=== PATIENT | male | born 1975 | race Caucasian/White ===

== ENCOUNTER 2024-01-17 20:47 | Emergency (ER) | payer SELFPAY ==
[2024-01-17 20:56] VITALS: BP 130/84
[2024-01-17] MEDS: ADACEL 0.5 ML IM (22:10)
[2024-01-17] MEDS: KEFLEX 500 MG PO (22:10)
--- NOTE | 2024-01-17 23:06 | ED.GENMED ---
History of Present Illness
General
Chief Complaint: Skin Problem
Source: patient and spouse
Exam Limitations: none
Time Seen by Provider: 01/17/24 21:17
Nursing documentation reviewed up to this point in time: agreed with
History of Present Illness
History of Present Illness:
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
emergency department. 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 Denies any numbness weakness.
Past History
Past History
ED Past Medical History: GERD and Psychiatric
ED Past Surgical History: Orthopedic
Social History
Tobacco: Former smoker
Alcohol: Occasional
Drug: None
Personal:
Living: with family
Employment: Employed
Review of Systems
Review of Systems
Allergies reviewed?: Yes
All Other Systems: ROS reviewed and negative except as documented in HPI and ROS
Phy Exam
Physical Exam
Physical Exam:
GENERAL: Alert , in no apparent distress
EYE: pupils equal and reactive
NECK: Supple, no significant adenopathy.
ENT: o/p clr, mmm.
CARDIAC: Regular rate and rhythm .
LUNGS: Clear breath sounds bilaterally, no acute respiratory distress, no wheezes/rales/rhonchi
ABDOMEN: Soft, without focal tenderness, no r/g, no cvat
NEUROLOGICAL: Alert and oriented, no focal neuro deficits
SKIN: 2.5 cm laceration to the left dorsal hand on the ulnar aspect. Superficial in depth warm and dry, skin intact.
MUSCULOSKELETAL: No edema, well perfused.
PSYCH: Normal and appropriate interaction.
Course
Orders/Labs/Results
Orders:
Orders
01/17/24 22:03
Cephalexin Monohydrate [Keflex] 500 mg PO NOW STA
Tetanus/Diphth/Acelpertussis [Adacel] 0.5 ml IM .ONCE ONE
CR Hand - Left 2 Views Urgent
Comment:
Reason For Exam: hand laceration
Vital Signs
Initial and Last Documented VS:
Initial Vital Signs
Temp Pulse Resp BP Pulse Ox
99.1 F 85 18 130/84 99
01/17/24 20:56 01/17/24 20:56 01/17/24 20:56 01/17/24 20:56 01/17/24 20:56
Last Documented Vital Signs
Temp Pulse Resp BP Pulse Ox
99.1 F 85 18 130/84 99
01/17/24 20:56 01/17/24 20:56 01/17/24 20:56 01/17/24 20:56 01/17/24 20:56
Procedures
Laceration Closure
Left Ulnar Hand:
Status of Wound: clean
Size of Wound in cm: 2.5
Description of Wound Edges: sharp
Preparation: cleaned with saline
Anesthesia: 1% Lidocaine with epi
Revision/Debridement: routine- no revision and irrigate-direct pressure
Wound exploration: explored to base- no FB and no tendon involvement
Type of Closure: single layer closure
Skin Closure Material: 4-0 nylon
Number of sutures: 3
MDM/Problems Addressed
MDM/Problems Addressed:
48-year-old male presenting to the emergency department today with concerns of laceration to the left hand that occurred in the waiter/waitress tavern while at work. Bleeding controlled with pressure otherwise no numbness or weakness. X-ray performed without
emergent findings here. Lacerations relatively superficial no foreign body seen cleaned thoroughly no tendon involvement neurovascular intact. Patient is diabetic. He was started on Keflex as prophylaxis and also given an updated tetanus shot
otherwise 3 stitches placed advised for removal in 12 to 14 days. Return precautions given.
*Critical Care Note
Total Time (30-74mins, 75-104mins- exclusive of procedures): Not Applicable
ED Attending Note
-
Portions of this chart may have been created with voice recognition software.� Occasional wrong word or��sound alike� substitutions may have occurred due to the inherent limitations of voice recognition software.
Discharge Plan
Departure
Patient Disposition: Home (Routine Discharge)
Date of Disposition: 01/17/24
Time of Disposition: 23:09
Patient with high blood pressure during this ER visit?: No
Condition: Good
Covid-19: Not Applicable
Discharge Problem:
Hand laceration
Instructions: Laceration Repair With Stitches ED
Prescriptions:
New
cephalexin 500 mg capsule
500 mg PO TID 3 Days Qty: 9 0RF
No Action
omeprazole [Prilosec] 40 MG capsule,delayed release(DR/EC)
40 mg PO DAILY Qty: 20 0RF
diazepam 5 MG tablet
5 mg PO TIDPRN PRN (Reason: muscle spasm) Qty: 9 0RF
ciprofloxacin HCl 1 DROP drops
2 drp ophthalmic (eye) . DIRECTED Qty: 1 0RF
Rx Instructions:
2 drops every 4 hours
Referrals:
Crispin Merchant MD [Family Provider] -
Stand Alone Forms: Return to Work
Activity Restrictions/Additional Instructions:
You came to the emergency department today with concerns of a laceration to your hand. Please keep this clean covered and return for suture removal in 12 to 14 days. Please also take the prescribed antibiotics for the next few days to reduce risk
of infection.
Interventions
Interventions:
*Risk Screen - Suicide Last Done: 01/17/24 22:15
*General Assessment Last Done: 01/17/24 22:15
*Neglect/Abuse Screening Last Done: 01/17/24 22:15
ED- Fall Risk Assessment Last Done: 01/17/24 22:15
*ED COVID-19 Vaccine History Last Done: 01/17/24 22:16
ED-Skin Assessment Last Done: 01/17/24 22:15
Discharge Date and Time
Print Language: HEBREW
[2024-01-17] MEDS: REGLAN 10 MG PO (23:15)
[2024-01-17] MEDS: MOTRIN 600 MG PO (23:15)
[2024-01-17 23:18] VITALS: BP 140/79
== END 2024-01-17 23:18 | disposition home or self-care (01) ==
LOC: EMR 20:47
PROVIDERS: EMERGENCY PHYSICIAN Emergency Medicine; FAMILY PHYSICIAN Internal Medicine
DX: S61.412A Laceration without foreign body of left hand, initial encounter (principal); W45.8XXA Other foreign body or object entering through skin, initial encounter; Z23 Encounter for immunization; E11.9 Type 2 diabetes mellitus without complications; K21.9 Gastro-esophageal reflux disease without esophagitis; Z87.891 Personal history of nicotine dependence
CPT/HCPCS: 99283; 12001; 90471; 73120; 90715

== ENCOUNTER 2024-03-12 20:13 | Emergency (ER) | payer BC, SELFPAY ==
[2024-03-12 20:14] VITALS: BP 113/81
[2024-03-12 20:18] LABS: Glucose - Point of Care 407 mg/dl (70-99)
[2024-03-12 20:36] LABS: Venous Blood Gas B.E. 2.8 mmol/L (-4 to +4); Venous Blood Gas HCO3 28.5 mmol/L (22-27); Venous Blood Gas O2 Sat % 83.6 %; Venous Blood Gas pCO2 46 mmHg (35-48); Venous Blood Gas pO2 49 mmHg (30-50)
[2024-03-12 20:37] LABS: Urine Albumin Negative (Neg - Trace); Urine Bilirubin Negative (Negative); Urine Character Clear (Clear); Urine Color Yellow; Urine Glucose 3+ (Negative); Urine Ketone Negative (Negative); Urine Leukocyte Negative (Negative); Urine Nitrite Negative (Negative); Urine Occult Blood Negative (Negative); Urine Specific Gravity 1.015 (<1.030); Urine Urobilinogen Negative (Neg - 1+)
[2024-03-12 20:37] LABS: % Basophils 0.7 % (0-2); % Eosinophils 2.3 % (0-6); % Immature Granulocytes 0.5 % (0-0.5); % Lymphocytes 22.2 % (20.5-51.1); % Monocytes 6.5 % (1.7-9.3); % Neutrophils 67.8 % (42.2-75.2); Absolute Basophils 0.1 10^3/uL (0-0.2); Absolute Eosinophils 0.2 10^3/uL (0-0.7); Absolute Immature Granulocytes 0.1 10^3/uL (0-0.05); Absolute Lymphocytes 2.2 10^3/uL (1.2-3.4); Absolute Monocytes 0.6 10^3/uL (0.1-0.6); Absolute Neutrophils 6.7 10^3/uL (1.4-6.5); Hematocrit 48.3 % (39.0-52.0); Hemoglobin 16.3 g/dL (13.0-18.0); Mean Corp Hgb Conc. 33.7 g/dL (33.0-37.0); Mean Corpuscular Hgb 29.2 pg (27.0-31.0); Mean Corpuscular Volume 86.4 fL (80.0-94.0); Mean Platelet Volume 9.9 fL (7.4-10.4); Nucleated Red Blood Cells % 0 % (-); Platelet Count 192 10^3/uL (130-400); Red Blood Cell Count 5.59 10^6/uL (4.70-6.10); Red Cell Dist. Width 12.2 % (11.5-14.5); White Blood Cell Count 9.9 10^3/uL (4.8-10.8)
[2024-03-12 20:49] LABS: Lactic Acid 1.6 mmol/L (0.7-2.0)
[2024-03-12 21:00] VITALS: BP 116/81
[2024-03-12 21:03] LABS: ALT (SGPT) 36 U/L (0-50); AST (SGOT) 22 U/L (17-59); Albumin 4.7 g/dl (3.5-5.0); Alkaline Phosphatase 69 U/L (38-126); Blood Urea Nitrogen 20 mg/dl (9-20); Calcium 9.6 mg/dl (8.4-10.2); Carbon Dioxide 26 mmol/L (22-30); Chloride 96 mmol/L (98-107); Glucose 436 mg/dl (70-99); Potassium 4.4 mmol/L (3.5-5.1); Sodium 133 mmol/L (135-145); Total Bilirubin 0.7 mg/dl (0.2-1.3); Total Protein 7.6 g/dl (6.3-8.2); eGFR > 60.00
[2024-03-12 21:11] LABS: B-Hydroxybutyrate 0.06 mmol/L (0.02-0.27)
[2024-03-12 22:00] VITALS: BP 116/83
--- NOTE | 2024-03-12 22:10 | ED.GENMED ---
History of Present Illness
<JEAN CLAUDE Webb - Last Filed: 03/13/24 00:17>
General
Chief Complaint: Blood Sugar Problem
Source: patient and spouse
Exam Limitations: none
Time Seen by Provider: 03/12/24 22:00
Nursing documentation reviewed up to this point in time: agreed with
History of Present Illness
History of Present Illness:
Pt is a 48 yo M with PMH of type 2 DM, GERD, glaucoma and chronic back pain who presents to the ED after multiple high blood sugar readings at home over the past day which he states were in the 500s. Pt admits to associated mild dizziness since this
morning but denies episodes of syncope or falls. Pt also admits to numbness in his feet b/l, but states it is chronic. Pt denies TAVERAS, changes in vision, n/v/d, chest pain, SOB, abdominal pain.
Past History
<JEAN CLAUDE Webb - Last Filed: 03/13/24 00:17>
Past History
ED Past Medical History: GERD and Psychiatric
ED Past Surgical History: Orthopedic
Social History
Tobacco: Former smoker
Alcohol: Occasional
Drug: None
Personal:
Living: with family
Employment: Employed
Review of Systems
<JEAN CLAUDE Webb - Last Filed: 03/13/24 00:17>
Review of Systems
Allergies reviewed?: Yes
Other source history: family
Constitutional: Denies fever, fatigue, night sweats or chills
Respiratory: Denies cough or trouble breathing
Cardiac: Denies chest pain, palpitations or syncope
ABD/GI: Denies abdominal pain, nausea, vomiting or diarrhea
: Reports frequency; Denies flank pain, difficulty voiding, urgency or bleeding
Neurological: Reports dizzy and numbness (chronic); Denies headache or weakness
Endocrine: Reports polyuria and polydipsia
Phy Exam
<Melissa Mckinney, [facility] - Last Filed: 03/13/24 00:17>
General Physical Exam
General Presentation: well appearing and no apparent distress
General age: appears stated age
General Skin: warm and dry
General Habitus: normal
General Mental: alert
General Hydration: dry mucous membranes
ENT Exam
Additional ENT: dehydrated oral mucosa
Eye Exam
Eye Exam: PERRL
Cardiovascular Exam
Cardiovascular Exam: regular rate/rhythm and no murmur
Pulmonary Exam
Pulmonary Exam: lungs clear and no respiratory distress
Gastrointestinal Exam
Gastrointestinal Exam: non tender, soft and non distended
Neurological Exam
Neurological Exam: alert, oriented x3, no motor deficits, no sensory deficits and speech normal
Skin Exam
Skin Exam: normal color and warm/dry
<Anderson Medley DO - Last Filed: 03/12/24 23:42>
Physical Exam
Physical Exam:
Physical Exam
General: no apparent distress, not acutely ill
Neck: Dry lips
Heart: s1/s2 regular rate and rhythm, no murmur. equal radial pulses.
Lungs: no acute respiratory distress. clear bilaterally
Abdomen: Not tender
Neuro: alert and oriented. no focal neurological deficits
Skin: no rash
Psychiatric: well kept. interactive and cooperative
Extremities: no edema.
Course
<Melissa Mckinney, [facility] - Last Filed: 03/13/24 00:17>
Orders/Labs/Results
Orders:
Orders
03/12/24 20:24
B-Hydroxybutyrate Urgent
Complete Blood Count/With Diff Urgent
Comprehensive Metabolic Panel Urgent
Lactic Acid Urgent
Venous Blood Gas Urgent
%Oxygen/Room Air: ra
12/09/24 20:25
Urine Culture Reflexed from UA [Urinalysis Reflex To Culture] Urgent
Date Specimen was Collected: 03/12/24
Time Specimen was Collected: 20:21
03/12/24 22:10
0.9% Sodium Chloride 1000 ml [Nss] 1,000 ml IV BOLUS
Insulin Aspart [NOVOLOG vial] 6 units SC NOW STA
03/12/24 22:26
HOSPITALIST CONSULT Urgent
Consulting Provider: Zoya Hardy
Was physician already notified: Yes
03/12/24 22:38
GlipiZIDE [Glucotrol] 5 mg PO NOW STA
Abnormal Lab Results
03/12/24 03/12/24 03/12/24
20:17 20:24 20:25
Abs Immat Gran (auto) 0.1 H 10^3/uL
(0-0.05)
Absolute Neuts (auto) 6.7 H 10^3/uL
(1.4-6.5)
VBG HCO3 28.5 H mmol/L
(22-27)
Sodium 133 L mmol/L
(135-145)
Chloride 96 L mmol/L
(98-107)
Glucose 436 H mg/dl
(70-99)
Urine Glucose 3+ A
(Negative)
POC Glucose 407 H mg/dl
(70-99)
03/12/24 03/12/24
22:26 23:39
Abs Immat Gran (auto)
Absolute Neuts (auto)
VBG HCO3
Sodium
Chloride
Glucose
Urine Glucose
POC Glucose 346 H mg/dl 271 H mg/dl
(70-99) (70-99)
03/12/24 20:24
03/12/24 20:24
Vital Signs
Initial and Last Documented VS:
Initial Vital Signs
Temp Pulse Resp BP Pulse Ox
98.6 F 101 20 113/81 98
03/12/24 20:14 03/12/24 20:14 03/12/24 20:14 03/12/24 20:14 03/12/24 20:14
Last Documented Vital Signs
Temp Pulse Resp BP Pulse Ox
98.6 F 66 19 114/81 98
03/12/24 20:14 03/12/24 23:54 03/12/24 23:54 03/12/24 23:54 03/12/24 23:54
<Anderson Medley, DO - Last Filed: 03/12/24 23:42>
Orders/Labs/Results
Orders:
Orders
03/12/24 20:24
B-Hydroxybutyrate Urgent
Complete Blood Count/With Diff Urgent
Comprehensive Metabolic Panel Urgent
Lactic Acid Urgent
Venous Blood Gas Urgent
%Oxygen/Room Air: ra
03/12/24 20:25
Urine Culture Reflexed from UA [Urinalysis Reflex To Culture] Urgent
Date Specimen was Collected: 03/12/24
Time Specimen was Collected: 20:21
03/12/24 22:10
0.9% Sodium Chloride 1000 ml [Nss] 1,000 ml IV BOLUS
Insulin Aspart [NOVOLOG vial] 6 units SC NOW STA
03/12/24 22:26
HOSPITALIST CONSULT Urgent
Consulting Provider: Zoya Hardy
Was physician already notified: Yes
03/12/24 22:38
GlipiZIDE [Glucotrol] 5 mg PO NOW STA
Abnormal Lab Results
03/12/24 03/12/24 03/12/24
20:17 20:24 20:25
Abs Immat Gran (auto) 0.1 H 10^3/uL
(0-0.05)
Absolute Neuts (auto) 6.7 H 10^3/uL
(1.4-6.5)
VBG HCO3 28.5 H mmol/L
(22-27)
Sodium 133 L mmol/L
(135-145)
Chloride 96 L mmol/L
(98-107)
Glucose 436 H mg/dl
(70-99)
Urine Glucose 3+ A
(Negative)
POC Glucose 407 H mg/dl
(70-99)
03/12/24 03/12/24
22:26 23:39
Abs Immat Gran (auto)
Absolute Neuts (auto)
VBG HCO3
Sodium
Chloride
Glucose
Urine Glucose
POC Glucose 346 H mg/dl 271 H mg/dl
(70-99) (70-99)
03/12/24 20:24
03/12/24 20:24
Vital Signs
Initial and Last Documented VS:
Initial Vital Signs
Temp Pulse Resp BP Pulse Ox
98.6 F 101 20 113/81 98
03/12/24 20:14 03/12/24 20:14 03/12/24 20:14 03/12/24 20:14 03/12/24 20:14
Last Documented Vital Signs
Temp Pulse Resp BP Pulse Ox
98.6 F 66 19 114/81 98
03/12/24 20:14 03/12/24 23:54 03/12/24 23:54 03/12/24 23:54 03/12/24 23:54
<JENA CLAUDE Webb - Last Filed: 03/13/24 00:17>
MDM/Problems Addressed
Differential Diagnosis Includes:
DKA, NKHC, hyperglycemia, severe dehydration
Chronic conditions affecting care: DM
<JEAN CLAUDE Webb - Last Filed: 03/13/24 00:17>
*Critical Care Note
Total Time (30-74mins, 75-104mins- exclusive of procedures): Not Applicable
<Anderson Medley DO - Last Filed: 03/12/24 23:42>
Update Note
Update Note:
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
11:40 PM labs are trending down previously discussed with the hospitalist started on glipizide
ED Attending Note
<JEAN CLAUDE Webb - Last Filed: 03/13/24 00:17>
-
Portions of this chart may have been created with voice recognition software.� Occasional wrong word or��sound alike� substitutions may have occurred due to the inherent limitations of voice recognition software.
<Anderson Medley DO - Last Filed: 03/12/24 23:42>
ED Attending Note
Patient seen and examined by attending physician: Yes
ED Attending Note:
Seen with student examined independently agree with assessment and plan
Discharge Plan
Departure
Patient Disposition: Home (Routine Discharge)
Date of Disposition: 03/12/24
Time of Disposition: 23:41
Patient with high blood pressure during this ER visit?: No
Condition: Good
Covid-19: Not Applicable
Discharge Problem:
Hyperglycemia due to diabetes mellitus
Instructions: Type 2 Diabetes (DC)
Prescriptions:
New
glipizide 5 mg tablet
5 mg PO DAILY Qty: 30 0RF
No Action
omeprazole [Prilosec] 40 MG capsule,delayed release(DR/EC)
40 mg PO DAILY Qty: 20 0RF
diazepam 5 MG tablet
5 mg PO TIDPRN PRN (Reason: muscle spasm) Qty: 9 0RF
ciprofloxacin HCl 1 DROP drops
2 drp ophthalmic (eye) . DIRECTED Qty: 1 0RF
Rx Instructions:
2 drops every 4 hours
cephalexin 500 mg capsule
500 mg PO TID 3 Days Qty: 9 0RF
Referrals:
Crispin Merchant MD [Family Provider] - Next open appointment
Interventions
Interventions:
*Risk Screen - Suicide Last Done: 03/12/24 20:45
*General Assessment Last Done: 03/12/24 20:14
*Neglect/Abuse Screening Last Done: 03/12/24 20:45
ED- Fall Risk Assessment Last Done: 03/12/24 20:45
*ED COVID-19 Vaccine History Last Done: 03/12/24 20:45
*Nursing Disposition Last Done: 03/12/24 23:59
ED- Neurological Assessment Last Done: 03/12/24 20:45
Discharge Date and Time
Discharge Date/Time: 03/13/24 00:00
Print Language: [place]
[2024-03-12] MEDS: NOVOLOG vial 6 UNITS SC (22:27)
[2024-03-12 22:28] LABS: Glucose - Point of Care 346 mg/dl (70-99)
[2024-03-12] MEDS: NSS 1000 IV (22:28)
--- NOTE | 2024-03-12 22:40 | CON.HOSP ---
Family Physician
-
Family Physician: Crispin Merchant MD
Chief Complaint
-
Hypoglycemia
History of Present Illness
This is a 48-year-old with type 2 diabetes who is currently on Mounjaro presenting to the emergency department with dizziness and hyperglycemia.
Patient reported that she has been on Mounjaro for the last 3 months. His last A1c was 7. Prior to that he had been on oral medications as well as Ozempic. Both Mounjaro and Ozempic have been very effective but difficult to obtain due to
financial difficulties. His last use of Mounjaro was about 4 weeks ago. He says that he will be able to get Mounjaro in April. He uses 5 mg weekly. Patient reports that over the last 3 days his blood sugars have been running high. He reports
dry mouth, polydipsia and polyuria. Bradford dizzy at work today and his blood glucose was checked and it was over 500. He then came to the emergency department for evaluation.
In the emergency department he was afebrile, normotensive and nontachycardic. CBC was unremarkable. His chemistries were also within normal limits except for a blood glucose of 436. He had no anion gap. Urine ketones was negative.
Beta-hydroxybutyrate was negative. pH on ABG 7.4 / 46/ 28. Patient without any evidence of DKA.
Medical History
Past Medical History
Past Medical History: Reports NIDDM
Past Surgical History: Reports None
Social History
Tobacco: Non-smoker
Alcohol: None
Drug: None
Personal: Single
Living: With Family
Employment: Employed
Family History
Family History: Reviewed & Not Pertinent
Allergies / Home Medications
Allergies reflects when Allergies were last updated in [facility].
Home Medications with original date entered in [facility]
Allergy/Medication List:
Allergies
Allergy/AdvReac Type Severity Reaction Status Date / Time
bupropion [From Wellbutrin] AdvReac Unknown Verified 03/12/24 20:14
Home Medications
omeprazole 40 mg capsule,delayed release (Prilosec) 40 mg PO DAILY #20 caps 04/15/13
diazepam 5 mg tablet 5 mg PO TIDPRN PRN muscle spasm #9 tabs 07/24/13
ciprofloxacin HCl 0.3 % eye drops 2 drp ophthalmic (eye) . DIRECTED ##1 06/29/21
cephalexin 500 mg capsule 500 mg PO TID 3 days #9 caps 01/17/24
Review of Systems
-
History Source: Patient
EENT: Reports No Symptoms
Respiratory: Reports No Symptoms
Cardiac: Reports No Symptoms
Abdomen/GI: Reports No Symptoms
: Reports No Symptoms
Musculoskeletal: Reports No Symptoms
Skin: Reports No Symptoms
Neurological: Reports No Symptoms
Endocrine: Reports Polyuria and Polydipsia
Hematologic/Lymphatic: Reports No Symptoms
Psych: Reports No Symptoms
Physical Exam
Vital Signs
Vital Signs
Temp Pulse Resp BP Pulse Ox
98.6 F 66 19 116/83 97
03/12/24 20:14 03/12/24 22:00 03/12/24 22:00 03/12/24 22:00 03/12/24 22:00
Physical Exam
General: Well Developed, Well Nourished, No Apparent Distress and Comfortable
HEENT: Normocephalic, Anicteric and Moist Mucous Membranes
Respiratory: Clear
Cardiac: S1/S2 and Regular Rhythm
GI: Soft, Non Tender, Non Distended and Normal Bowel Sounds
Rectal: Deferred by Provider
Genito-urinary: No Costovertebral Tend
Musculoskeletal: No Clubbing, No Cyanosis and No Edema
Skin: Warm
Neuro: AO x 3
Hematologic/Lymphatic: No Lymphadenopathy
Psych: Calm
Laboratory Results
-
Laboratory Results
12/09/24 20:24
03/12/24 20:24
Lactic Acid 1.6 mmol/L (0.7-2.0) 03/12/24 20:24
Total Bilirubin 0.7 mg/dl (0.2-1.3) 03/12/24 20:24
AST 22 U/L (17-59) 03/12/24 20:24
ALT 36 U/L (0-50) 03/12/24 20:
Alkaline Phosphatase 69 U/L (38-126) 03/12/24 20:24
Data Reviewed
-
Lab Data: Labs Reviewed
Old Records: Reviewed
Impression / Plan
-
IMPRESSION:
This is a 48-year-old with type 2 diabetes currently on Mounjaro who has been having difficulty securing his medications due to insurance not covering Mounjaro at this time. He comes in with hyperglycemic symptoms. No evidence of DKA. Blood
glucose of 480. Poor control secondary to the lack of medications over the last 4 weeks. He has tolerated oral antiglycemic's in the past. However he reports that metformin has resulted in severe diarrhea and nausea.
Plan
Uncontrolled diabetes due to lack of medications -
- getting initial rapid control in ED with normal saline and IV insulin
- patient cannot afford parenteral insulins and expensive oral agents at this time. Did not tolerate metformin.
-No recent hypoglycemic episodes.
- recommend glipizide 5mg daily, check fasting glucose at home.
- follow up with pmd as soon as possible
- goal fasting glucose < 150 for now to avoid hypoglycemia. Titrate glipizide by 2.5mg if not at goal.
- return to ED if blood glucose persistently above 300
[2024-03-12] MEDS: GLUCOTROL 5 MG PO (22:46)
[2024-03-12 23:00] VITALS: BP 119/88
[2024-03-12 23:40] LABS: Glucose - Point of Care 271 mg/dl (70-99)
[2024-03-12 23:54] VITALS: BP 114/81
== END 2024-03-13 | disposition home or self-care (01) ==
LOC: EMR 20:13
PROVIDERS: Emergency Medicine; CONSULT PHYSICIAN Internal Medicine; EMERGENCY PHYSICIAN Emergency Medicine; FAMILY PHYSICIAN Internal Medicine
DX: E11.65 Type 2 diabetes mellitus with hyperglycemia (principal); G89.29 Other chronic pain; K21.9 Gastro-esophageal reflux disease without esophagitis; Z79.85 Long-term (current) use of injectable non-insulin antidiabetic drugs; Z87.891 Personal history of nicotine dependence; Z91.141 Patient's other noncompliance with medication regimen due to financial hardship; Z59.86 Financial insecurity
CPT/HCPCS: 96372; 99284; 96360; 80053; 81003; 82010; 82805; 82962; 83605; 85025

== ENCOUNTER 2024-05-14 15:37 | Emergency (ER) | payer SELFPAY ==
[2024-05-14 15:44] VITALS: BP 127/77
--- NOTE | 2024-05-14 16:18 | ED.GENMED ---
History of Present Illness
General
Chief Complaint: Musculo-Skeletal Complaint
Source: patient
Time Seen by Provider: 05/14/24 16:04
History of Present Illness
History of Present Illness:
49-year-old male with past medical history of insulin-dependent diabetes and GERD presenting to the emergency department for evaluation after he was at work and slipped on a tomato causing him to fall to the ground injuring his right hip/pelvis,
right knee and elbow but stating that his knee and elbow are not bothering him any longer but he is most concerned about his right hip due to previous fracture requiring surgery. Patient denies any head injury, LOC, vomiting or visual changes.
Denies any use of anticoagulants. No other concerns presently. Declines anything for pain.
Past History
Past History
ED Past Medical History: GERD, IDDM and Psychiatric
ED Past Surgical History: Orthopedic
Social History
Tobacco: Former smoker
Alcohol: Occasional
Drug: None
Personal:
Living: with family
Employment: Employed
Review of Systems
Review of Systems
All Other Systems: ROS reviewed and negative except as documented in HPI and ROS
Phy Exam
Physical Exam
Physical Exam:
GENERAL: Alert , in no apparent distress
EYE: conjunctiva clear
Head: Normocephalic atraumatic
NECK: Supple,
ENT: mmm.
LUNGS: no acute respiratory distress
NEUROLOGICAL: Alert and oriented
SKIN: Warm and dry, skin intact.
MUSCULOSKELETAL: well perfused. Right lower extremity: No obvious deformity, erythema, edema, ecchymosis, abrasions or lacerations. Patient does allow for range of motion at the foot, ankle and knee without much difficulty. Pain worsens with
range of motion of the right hip/pelvis. No other injuries noted to other extremities.
PSYCH: Normal and appropriate interaction.
Scores
Heart Failure Risk
Heart Failure Risk Score: Not Applicable
Heart Score for Chest Pain Patients
STEMI patient?: Not applicable
Withdrawal Assessment of Alcohol
Withdrawal Assessment Completed?: Not applicable
Course
Orders/Labs/Results
Orders:
Orders
05/14/24 16:16
CR Femur - Right Min 2 Vw Urgent
Comment:
Reason For Exam: fall, pain
CR Hip - RT w/wo Pel 2-3 Vw* Urgent
Comment:
Reason For Exam: fall, pain, previous fx
Include a pelvis x-ray?: Yes
Vital Signs
Initial and Last Documented VS:
Initial Vital Signs
Temp Pulse Resp BP Pulse Ox
98.0 F 72 18 127/77 98
05/14/24 15:44 05/14/24 15:44 05/14/24 15:44 05/14/24 15:44 05/14/24 15:44
Last Documented Vital Signs
Temp Pulse Resp BP Pulse Ox
98.0 F 72 18 127/77 98
05/14/24 15:44 05/14/24 15:44 05/14/24 15:44 05/14/24 15:44 05/14/24 15:44
MDM/Problems Addressed
Differential Diagnosis Includes:
Contusion, bursitis, fracture
MDM/Problems Addressed:
49-year-old male presenting to the ER for evaluation of right hip pain following an accidental fall at work. Patient was ambulatory following the event. Most concerned about the right hip secondary to a previous fracture but this occurred in 2002.
Will obtain x-ray of the right hip and femur. Patient declining anything for pain. Anticipate discharge home.
*Radiology
Radiology exam reviewed: preliminary read by ED provider (No acute fracture of the hip or femur)
*Pulse Oximetry
Patient hypoxic: no
*Critical Care Note
Total Time (30-74mins, 75-104mins- exclusive of procedures): Not Applicable
Patient Management
Escalation/DeEscalation of care consider admission/obs:
X-ray is unremarkable for any acute pathologies. Patient is stable for discharge home and outpatient management. Follow-up with orthopedics or given the fact that injury occurred at work he may need to follow-up with Worker's Compensation.
NSAIDs/Tylenol as needed for pain.
ED Attending Note
-
Portions of this chart may have been created with voice recognition software.� Occasional wrong word or��sound alike� substitutions may have occurred due to the inherent limitations of voice recognition software.
Discharge Plan
Departure
Patient Disposition: Home (Routine Discharge)
Date of Disposition: 05/14/24
Time of Disposition: 17:40
Patient with high blood pressure during this ER visit?: No
Discharge Problem:
Accidental fall, Hip pain, right
Instructions: Hip Pain ED
Prescriptions:
No Action
omeprazole [Prilosec] 40 MG capsule,delayed release(DR/EC)
40 mg PO DAILY Qty: 20 0RF
diazepam 5 MG tablet
5 mg PO TIDPRN PRN (Reason: muscle spasm) Qty: 9 0RF
ciprofloxacin HCl 1 DROP drops
2 drp ophthalmic (eye) . DIRECTED Qty: 1 0RF
Rx Instructions:
2 drops every 4 hours
cephalexin 500 mg capsule
500 mg PO TID 3 Days Qty: 9 0RF
glipizide 5 mg tablet
5 mg PO DAILY Qty: 30 0RF
Referrals:
Crispin Merchant MD [Family Provider] -
Stand Alone Forms: Return to Work
Interventions
Interventions:
*Risk Screen - Suicide Last Done: 05/14/24 17:36
*General Assessment Last Done: 05/14/24 17:36
*Neglect/Abuse Screening Last Done: 05/14/24 17:36
*ED COVID-19 Vaccine History Last Done: 05/14/24 17:36
*Nursing Disposition Last Done: 05/14/24 17:56
ED-Musculoskeletal Assessment Last Done: 05/14/24 17:36
Discharge Date and Time
Print Language: ARMENIAN
== END 2024-05-14 17:56 | disposition home or self-care (01) ==
LOC: EMR 15:37
PROVIDERS: EMERGENCY PHYSICIAN Emergency Medicine; FAMILY PHYSICIAN Internal Medicine
DX: M25.551 Pain in right hip (principal); W01.0XXA Fall on same level from slipping, tripping and stumbling without subsequent striking against object, initial encounter; Y99.0 Civilian activity done for income or pay; K21.9 Gastro-esophageal reflux disease without esophagitis; E11.9 Type 2 diabetes mellitus without complications; Z87.891 Personal history of nicotine dependence
CPT/HCPCS: 99283; 73502; 73552